=== PATIENT | male | born 1990 | race Caucasian/White ===

== ENCOUNTER 2017-02-27 13:51 | Emergency (ER) | payer SELFPAY ==
[~2017-02-27] VITALS: Ht 180.3 cm; Wt 58.0 kg
[~2017-02-27 13:51] MED LIST: IBUP-232 PO
[2017-02-27 14:04] VITALS: BP 125/67; PULSE 93; RESP 16; TEMP 98.7; O2SAT 97
--- NOTE | 2017-02-27 14:43 | PD ---
HPI Chief Complaint: Skin Problem Time Seen by Provider: 14:10 Travel History International Travel<30 days: No Contact w/Intl Traveler<30days: No Traveled to known affect area: No History of Present Illness HPI 26-year-old male presents emergency department for evaluation and for rash on his back times one week. Patient reports the rash on his back is pruritic. He believes possible cause is his work shirt which has a large vinyl print on the back which sticks to his skin and causes intense itching. Patient reports symptoms are slightly improved with [id number] steroid cream although he has a hard time applying the cream due to the location of the rash. He denies fevers, chills or any other medical complaint. PFSH Past Medical History Medical History: Denies Significant Hx Cardiovascular Problems: Yes ("IRREGULAR HEARTBEAT") Diminished Hearing: No Immunizations Current: Yes Tetanus Vaccination: Unknown Influenza Vaccination: No ?: Not Past Surgical History Surgical History: No Previous Surgery Social History Alcohol Use: No ("VERY RARELY") Tobacco Use: No ("ONLY IN HIGH SCHOOL") Substance Use: Yes (occ marijuana) Allergies-Medications (Allergen,Severity, Reaction): Coded Allergies: No Known Allergies (Verified , 02/27/17) Reported Meds & Prescriptions Reported Meds & Active Scripts Active Motrin (Ibuprofen) 600 Mg Tab 600 Mg PO TID Review of Systems Except as stated in HPI: all other systems reviewed are Neg Skin: Positive Rash, Positive Itching Physical Exam Narrative GENERAL: Well-nourished, well-developed patient. SKIN: Focused skin assessment warm/dry. 4 erythematous areas that are well demarcated on the posterior thoracic region. HEAD: Normocephalic. EYES: No scleral icterus. No injection or drainage. NECK: Supple, trachea midline. No JVD or lymphadenopathy. CARDIOVASCULAR: Regular rate and rhythm without murmurs, gallops, or rubs. RESPIRATORY: Breath sounds equal bilaterally. No accessory muscle use. GASTROINTESTINAL: Abdomen soft, non-tender, nondistended. MUSCULOSKELETAL: No cyanosis, or edema. BACK: Nontender without obvious deformity. No CVA tenderness.4 erythematous areas that are well demarcated on the posterior thoracic region. Data Data Last Documented VS Vital Signs Date Time Temp Pulse Resp B/P Pulse Ox O2 Delivery O2 Flow Rate FiO2 02/27/17 14:04 98.7 93 16 125/67 97 [facility] Medical Decision Making Medical Screen Exam Complete: Yes Emergency Medical Condition: Yes Differential Diagnosis Allergic contact dermatitis, irritant contact dermatitis, eczema Narrative Course 26-year-old male since emergency for evaluation of a rash on his back believed to be caused by the vital print of his work shirt. Patient reports symptoms month is one week. On examination the rash appears to be contact dermatitis patient be treated with steroids and OTC Benadryl and instructed to avoid wearing the shirt. Patient agrees to plan Diagnosis Primary Impression: Contact dermatitis Qualified Code: L25.8 - Contact dermatitis due to other agent, unspecified contact dermatitis type Referrals: Primary Care Physician Additional Instructions: Take the steroids as prescribed. Take [id number] Benadryl as needed for itching. Avoid contact with his shirt. Return to the emergency department if any new or worsening symptoms. Scripts Prednisone 20 Mg Tab40 Mg PO DAILY #8 TAB Ref 0 Take 40 mg (2 tablets) daily for 5 days Prov:Elly Reyes 02/27/17 Disposition: 01 DISCHARGE HOME Condition: Stable Elly Reyes Feb 27, 2017 14:43
[2017-02-27] MEDS ORDERED: PRED20 PO (14:48)
== END 2017-02-27 15:00 | disposition home or self-care (01) ==
LOC: PHEFT 13:51
DX: L25.8 Unspecified contact dermatitis due to other agents (principal); Z87.891 Personal history of nicotine dependence
CPT/HCPCS: 99283

== ENCOUNTER 2017-04-30 17:07 | Emergency (ER) | payer SELFPAY ==
[~2017-04-30 17:07] MED LIST changes: +PRED20 PO
[2017-04-30 17:15] VITALS: BP 119/68; PULSE 90; RESP 22; TEMP 98.9; O2SAT 99
--- NOTE | 2017-04-30 17:27 | PD ---
HPI Chief Complaint: Chest Pain Time Seen by Provider: 17:24 Travel History International Travel<30 days: No Contact w/Intl Traveler<30days: No Traveled to known affect area: No History of Present Illness HPI 26-year-old male patient presents to the ER today for several episodes of palpitations, chest discomfort, shortness of breath the last a few minutes at a time. He states it is now gone again. He states that he has had some similar episodes in the past as well although he's never been formally diagnosed. He does not know the trigger. He denies any vomiting, fevers, or any other symptoms. He denies any recent long trips or leg swelling. Modifying Factors: None Associated Signs & Symptoms: Palpitations, chest discomfort, shortness of breath Risk Factors: None PFSH Past Medical History Cardiovascular Problems: Yes ("IRREGULAR HEARTBEAT") Diminished Hearing: No Immunizations Current: Yes Social History Alcohol Use: No Tobacco Use: No Substance Use: Yes (occ marijuana) Allergies-Medications (Allergen,Severity, Reaction): Coded Allergies: No Known Allergies (Verified , 04/30/17) Reported Meds & Prescriptions Reported Meds & Active Scripts Active No Active Prescriptions or Reported Medications Review of Systems Except as stated in HPI: all other systems reviewed are Neg Physical Exam Narrative GENERAL: Well-developed young white male patient currently in mild distress. Awake and oriented 3. Appears mildly anxious. SKIN: Focused skin assessment warm/dry. HEAD: Atraumatic. Normocephalic. EYES: Pupils equal and round. No scleral icterus. No injection or drainage. ENT: No nasal bleeding or discharge. Mucous membranes pink and moist. NECK: Trachea midline. No JVD. CARDIOVASCULAR: Regular rate and rhythm. No murmur appreciated. RESPIRATORY: No accessory muscle use. Clear to auscultation. Breath sounds equal bilaterally. GASTROINTESTINAL: Abdomen soft, non-tender, nondistended. Hepatic and splenic margins not palpable. MUSCULOSKELETAL: No obvious deformities. No clubbing. No cyanosis. No edema. NEUROLOGICAL: Awake and alert. No obvious cranial nerve deficits. Motor grossly within normal limits. Normal speech. PSYCHIATRIC: Appropriate mood and affect; insight and judgment normal. Data Data Last Documented VS Vital Signs Date Time Temp Pulse Resp B/P (MAP) Pulse Ox O2 Delivery O2 Flow Rate FiO2 04/30/17 17:51 91 20 108/59 (75) 97 118/68 (85) 04/30/17 17:15 98.9 Orders Orders Ckmb (Isoenzyme) Profile (04/30/17 17:24) Complete Blood Count With Diff (04/30/17:24) Comprehensive Metabolic Panel (04/30/17 17:24) D-Dimer (04/30/17:24) Magnesium (Mg) (04/30/17:24) Prothrombin Time / Inr (Pt) (04/30/17:24) Act Partial Throm Time (Ptt) (04/30/17:24) Troponin I (04/30/17:24) Chest, Single Ap (04/30/17:24) Ecg Monitoring (04/30/17:24) Bilateral Bp Monitoring (04/30/17) Iv Access Insert/Monitor (04/30/17:) Oximetry (04/30/17:24) Oxygen Administration (04/30/17:24) Sodium Chloride 0.9% Flush (Ns Flush) (04/30/17 17:30) CKMB (04/30/17 17:35) CKMB% (04/30/17 17:35) Labs Laboratory Tests Test 04/30/17 17:35 White Blood Count 7.4 TH/MM3 Red Blood Count 4.26 MIL/MM3 Hemoglobin 14.2 GM/DL Hematocrit 40.9 % Mean Corpuscular Volume 96.1 FL Mean Corpuscular Hemoglobin 33.3 PG Mean Corpuscular Hemoglobin Concent 34.6 % Red Cell Distribution Width 11.5 % Platelet Count 334 TH/MM3 Mean Platelet Volume 8.0 FL Neutrophils (%) (Auto) 71.6 % Lymphocytes (%) (Auto) 17.4 % Monocytes (%) (Auto) 6.6 % Eosinophils (%) (Auto) 1.9 % Basophils (%) (Auto) 2.5 % Neutrophils # (Auto) 5.2 TH/MM3 Lymphocytes # (Auto) 1.3 TH/MM3 Monocytes # (Auto) 0.5 TH/MM3 Eosinophils # (Auto) 0.1 TH/MM3 Basophils # (Auto) 0.2 TH/MM3 CBC Comment DIFF FINAL Differential Comment Prothrombin Time 11.2 SEC Prothromb Time International Ratio 1.0 RATIO Activated Partial Thromboplast Time 27.5 SEC D-Dimer Quantitative (PE/DVT) LESS THAN 0.19 MG/L FEU Blood Urea Nitrogen 13 MG/DL Creatinine 1.00 MG/DL Random Glucose 84 MG/DL Total Protein 7.0 GM/DL Albumin 3.8 GM/DL Calcium Level 8.7 MG/DL Magnesium Level 1.9 MG/DL Alkaline Phosphatase 49 U/L Aspartate Amino Transf (AST/SGOT) 18 U/L Alanine Aminotransferase (ALT/SGPT) 18 U/L Total Bilirubin 1.3 MG/DL Sodium Level 135 MEQ/L Potassium Level 3.6 MEQ/L Chloride Level 101 MEQ/L Carbon Dioxide Level 27.0 MEQ/L Anion Gap 7 MEQ/L Estimat Glomerular Filtration Rate 91 ML/MIN Total Creatine Kinase 133 U/L Creatine Kinase MB 1.3 NG/ML Troponin I LESS THAN 0.02 NG/ML MDM Medical Decision Making Medical Screen Exam Complete: Yes Emergency Medical Condition: Yes Medical Record Reviewed: Yes Interpretation(s) EKG shows NSR, no ST elevation or depression, and no arrhythmias. No significant T-wave inversions. LVH. Laboratory Tests Test 04/30/17 17:35 Red Blood Count 4.26 MIL/MM3 (4.50-5.90) Red Cell Distribution Width 11.5 % (11.6-17.2) Neutrophils (%) (Auto) 71.6 % (16.0-70.0) Basophils (%) (Auto) 2.5 % (0.0-2.0) Total Bilirubin 1.3 MG/DL (0.2-1.0) Sodium Level 135 MEQ/L (136-145) Troponin I LESS THAN 0.02 NG/ML Differential Diagnosis Palpitations, chest discomfort, shortness of breath: dysrhythmias versus anxiety attack versus PE versus ACS Narrative Course Chest x-ray did not show any signs of acute pulmonary processes. D-dimer is negative. Cardiac enzymes are negative and EKG did not show any signs of acute ST-T changes or dysrhythmias. At this point, my plan would be to release the patient with follow-up to primary care physician. Return for worsening in symptoms as necessary. The plan has been discussed with the patient and he states understanding. Diagnosis Primary Impression: Palpitations Scripts No Active Prescriptions or Reported Meds Disposition: 01 DISCHARGE HOME Condition: Stable Florentin Woodard MD Apr 30, 2017 17:27
[2017-04-30] MEDS ORDERED: SODIUM CHLORIDE 0.9% FLUSH 10 ML FLUSH IVF PRN (17:30)
[2017-04-30 17:39] VITALS: O2SAT 98
[2017-04-30 17:44] LABS: AUTOMATED NEUTROPHIL # 5.2 TH/MM3 (1.8-7.7); BASOPHIL # 0.2 TH/MM3 (0-0.2); BASOPHIL % 2.5 % (0.0-2.0); EOSINOPHIL # 0.1 TH/MM3 (0-0.4); EOSINOPHIL % 1.9 % (0.0-4.0); HEMATOCRIT 40.9 % (39.0-51.0); HEMO FLAGS DIFF FINAL; LYMPH % 17.4 % (9.0-44.0); LYMPHOCYTE # 1.3 TH/MM3 (1.0-4.8); MEAN CELL VOLUME 96.1 FL (80.0-100.0); MEAN CORPUSCULAR HEMOGLOBIN 33.3 PG (27.0-34.0); MEAN CORPUSCULAR HGB CONC 34.6 % (32.0-36.0); MONO % 6.6 % (0.0-8.0); NEUT % 71.6 % (16.0-70.0); PLATELET COUNT 334 TH/MM3 (150-450); RED BLOOD COUNT 4.26 MIL/MM3 (4.50-5.90); RED CELL DISTRIBUTION WIDTH 11.5 % (11.6-17.2); WHITE BLOOD COUNT 7.4 TH/MM3 (4.0-11.0)
[2017-04-30 17:51] VITALS: BP_SYST 108; BP_SYST 118; BP_DIAS 59; BP_DIAS 68; PULSE 91; RESP 20; O2SAT 97
[2017-04-30 17:52] LABS: CHLORIDE 101 MEQ/L (98-107); POTASSIUM 3.6 MEQ/L (3.5-5.1); SODIUM (NA) 135 MEQ/L (136-145)
[2017-04-30 17:56] LABS: ANION GAP 7 MEQ/L (5-15); BLOOD UREA NITROGEN 13 MG/DL (7-18); MAGNESIUM 1.9 MG/DL (1.5-2.5)
--- NOTE | 2017-04-30 17:56 | RADRPT ---
EXAM DATE/TIME: 04/30/2017 17:40 [facility] COMPARISON: No previous studies available for comparison. INDICATIONS : Chest pain, weakness, and difficulty breathing. MEDICAL HISTORY : None. SURGICAL HISTORY : None. ENCOUNTER: Initial ACUITY: 1 day PAIN SCORE: 3/10 LOCATION: Bilateral chest FINDINGS: A single view of the chest demonstrates the lungs to be symmetrically aerated without evidence of mas s, infiltrate or effusion. The cardiomediastinal contours are unremarkable. Osseous structures are intact. CONCLUSION: No acute disease. Leonard Kothari Jr., MD on April 30, 2017 at 17:55 Board Certified Radiologist. This report was verified electronically.
[2017-04-30 17:58] LABS: APTT (PATIENT) 27.5 SEC (24.3-30.1); PROTHROMBIN TIME - PATIENT 11.2 SEC (9.8-11.6)
[2017-04-30 17:59] LABS: ALT (GPT) 18 U/L (12-78); AST (GOT) 18 U/L (15-37); GLOMERULAR FILTRATION RATE 91 ML/MIN (>89)
[2017-04-30 18:00] LABS: TOTAL BILIRUBIN ADULT 1.3 MG/DL (0.2-1.0)
[2017-04-30 18:02] LABS: ALKALINE PHOSPHATASE 49 U/L (45-117); CREATINE KINASE 133 U/L (39-308)
[2017-04-30 18:14] LABS: CKMB 1.3 NG/ML (0.5-3.6)
--- NOTE | 2017-05-01 19:51 | EKG ---
Date Performed: 04/30/2017 Time Performed: 17:13:45 PTAGE: 26 years EKG: Sinus rhythm MINIMAL VOLTAGE CRITERIA FOR LVH, CONSIDER NORMAL VARIANT BORDERLINE ECG Compared to the PREVIOUS TRACING rate faster DOCTOR: Liam Aguilar Interpretating Date/Time 05/01/2017 19:50:43
== END 2017-04-30 18:40 | disposition home or self-care (01) ==
LOC: PHED 17:07
DX: R00.2 Palpitations (principal); R06.02 Shortness of breath; R53.1 Weakness
CPT/HCPCS: 71010; 80053; 82550; 82552; 83735; 84484; 85025; 85379; 85610; 85730; 93005; 99285

== ENCOUNTER 2017-08-26 02:05 | Emergency (ER) | payer SELFPAY ==
[~2017-08-26] VITALS: Ht 180.3 cm; Wt 70.0 kg
[2017-08-26 02:07] VITALS: BP 120/69; PULSE 102; RESP 16; TEMP 98.6; O2SAT 96
[2017-08-26] MEDS ORDERED: DOXY100C PO (02:42)
[2017-08-26] MEDS ORDERED: TETANUS/DIPHTHERIA TOXOID ADULT 0.5 ML VIAL IM ONE (02:45)
[2017-08-26] MEDS ORDERED: DOXYCYCLINE HYCLATE 100 MG CAP PO ONE (02:45)
--- NOTE | 2017-08-26 02:49 | PD ---
HPI Chief Complaint: Laceration/Skin Injury Time Seen by Provider: 02:20 Travel History International Travel<30 days: No Contact w/Intl Traveler<30days: No Traveled to known affect area: No History of Present Illness HPI 26-year-old [id number] white male presents to emergency department with a laceration to his right palm from falling on oyster shells this evening. She denies any numbness or tingling. No foreign body sensation. Pain is mild to moderate. Worse with movement of the hand. No alleviating factors. NOT Up-to-date with immunizations. PFSH Past Medical History Cardiovascular Problems: Yes ("IRREGULAR HEARTBEAT") Diminished Hearing: No Immunizations Current: Yes Tetanus Vaccination: > 5 Years Past Surgical History Surgical History: No Previous Surgery Social History Alcohol Use: Yes (OCC) Tobacco Use: No Substance Use: Yes (occ marijuana) Allergies-Medications (Allergen,Severity, Reaction): Coded Allergies: No Known Allergies (Verified , 04/30/17) Reported Meds & Prescriptions Reported Meds & Active Scripts Active Doxycycline Hyclate 100 Mg Cap 100 Mg PO BID Review of Systems General / Constitutional: No: Fever Eyes: No: Visual changes HENT: No: Headaches Cardiovascular: No: Chest Pain or Discomfort Respiratory: No: Shortness of Breath Gastrointestinal: No: Abdominal Pain Genitourinary: No: Dysuria Musculoskeletal: Positive: Pain, No: Arthralgias, Limited ROM, Edema Skin: No Rash Neurologic: No: Weakness Psychiatric: No: Depression Endocrine: No: Polydipsia Hematologic/Lymphatic: No: Easy Bruising Physical Exam Narrative GENERAL: This is a well-nourished, well-developed patient, in no apparent distress. SKIN: No rashes, ecchymoses or lesions. Warm and dry. HEAD: Atraumatic. Normocephalic. EYES: PERRL, EOMI, no discharge or injection. No scleral icterus. EARS: Clear NOSE: Nasal turbinates appear normal. THROAT: Mucosa pink and moist. Airway patent. NECK: Trachea midline. supple, moves head freely. LUNGS: Clear to auscultation. CV: Regular in rhythm. ABDOMEN: Soft nontender. EXT: No clubbing cyanosis or edema. Patient has a 4 cm laceration to the hypothenar eminence of the right palm. Laceration goes into the subcutaneous change tissues but no foreign bodies noted. No deep structure injury. Patient is able to move his fingers freely. Neurovascular intact. Intact median/ulnar/ radial nerves. Data Data Last Documented VS Vital Signs Date Time Temp Pulse Resp B/P (MAP) Pulse Ox O2 Delivery O2 Flow Rate FiO2 08/26/17 02:07 98.6 102 16 120/69 (86) 96 Room Air Orders Orders Doxycycline (Vibramycin) (08/26/17 02:45) Ed Discharge Order (08/26/17 02:42) MDM Medical Decision Making Medical Screen Exam Complete: Yes Emergency Medical Condition: Yes Medical Record Reviewed: Yes Differential Diagnosis MDM: High Differential diagnoses: Fracture, sprain, strain, dislocation, contusion, neurovascular injury Narrative Course Patient's given tetanus immunization, doxycycline 100 mg by mouth. His laceration is sutured. This is right hand laceration Procedures Procedure Narrative LACERATION LOCATION: Left hypothenar eminence LENGTH: 4 cm NUMBER OF STITCHES/JEREMY: 6 REPAIR: The area of the laceration was prepped with Betadine and sterilely draped. The laceration was infiltrated with 1% lidocaine and 0.5% Marcaine. The wound was copiously irrigated and explored without evidence of foreign body , tendon injury or neurovascular injury. The wound was closed using 4-0 proline. This was a simple single layer repair. A sterile dressing was applied. The patient was advised to keep the dressing clean and dry. Patient tolerated the procedure well. Diagnosis Primary Impression: Laceration of right hand Qualified Codes: S61.411A - Laceration without foreign body of right hand, initial encounter Patient Instructions: General Instructions Additional Instructions: Rest. Elevation. Daily wound care with soap, water, Neosporin. Tylenol or Advil for pain. Doxycycline. Sutures out in 12-14 days. Return to the ER if any problems. Med/Other Pt SpecificInfo: Prescription(s) given, Wound Care Scripts Doxycycline Hyclate (Doxycycline Hyclate) 100 Mg Cap 100 MG PO BID for Infection, #14 CAP 0 Refills Prov: Ly Duong MD 08/26/17 Disposition: 01 DISCHARGE HOME Condition: Stable Diego Iyer Aug 26, 2017 02:49
[2017-08-26 03:00] VITALS: BP 116/74
== END 2017-08-26 03:05 | disposition home or self-care (01) ==
LOC: NEPD 02:05
DX: S61.411A Laceration without foreign body of right hand, initial encounter (principal); W19.XXXA Unspecified fall, initial encounter; Z23 Encounter for immunization
CPT/HCPCS: 12002; 90471; 90714